=== PATIENT | male | born 2005 | race African-American/Black ===

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

== ENCOUNTER 2025-03-15 11:32 | Emergency (ER) | payer OTHER ==
[~2025-03-15] VITALS: Ht 182.9 cm; Wt 108.8 kg
[2025-03-15 11:49] VITALS: O2SAT 100
[2025-03-15 13:20] VITALS: BP 139/82; PULSE 58; RESP 14; TEMP 36.6; O2SAT 100
== END 2025-03-15 13:50 | disposition home or self-care (01) ==
LOC: ER 11:40
DX: L91.8 Other hypertrophic disorders of the skin (principal)
CPT/HCPCS: 99281